=== PATIENT | male | born 2000 | race Caucasian/White ===

== ENCOUNTER 2023-04-30 15:25 | Emergency (ER) | payer BC, SELFPAY ==
[2023-04-30 18:51] LABS: ALT (SGPT) 16 U/L (8-55); AST (SGOT) 17 U/L (5-34); Albumin 4.1 g/dL (3.5-5.0); Alkaline Phosphatase 50 U/L (40-110); Anion Gap 17 mmol/L (10-20); BUN (Urea Nitrogen) 10 mg/dL (8.9-20.6); Bilirubin, Total 0.5 mg/dL (0.2-1.2); Calc. Creatinine Clearance 0 mL/min (70-130); Calcium 9.2 mg/dL (7.8-10.44); Carbon Dioxide 26 mmol/L (22-29); Chloride 102 mmol/L (98-107); Estimated GFR 115; Globulin 3.7 g/dL (2.4-3.5); Glucose 85 mg/dL (70-105); Protein, Total 7.8 g/dL (6.0-8.3); Sodium 141 mmol/L (136-145)
[2023-04-30 18:52] LABS: Hematocrit 46.2 % (38.8-50.0); Mean Corpuscular HGB CONC 34.6 g/dL (32.0-36.0); Mean Corpuscular Hemoglobin 29.7 pg (27.0-33.0); Mean Corpuscular Volume 85.7 fl (81.2-95.1); Mean Platelet Volume 9.9 fl (7.4-10.4); Platelet Count 205 10x3/uL (150-450); RBC Distribution Width 11.6 % (11.5-14.5); Red Blood Cell (RBC) Count 5.39 10x6/uL (4.32-5.72); White Blood Cell (WBC) Count 9.2 10x3/uL (3.5-10.5)
[2023-04-30 19:05] LABS: HIV (1/2) Antibody/Antigen Non-Reactive (NonReactive); HIV 1/2 INDEX 0.14 S/CO (<1.00)
[2023-04-30 19:08] LABS: Mononucleosis NEGATIVE (NEGATIVE)
[2023-04-30 19:09] LABS: MONO NEGATIVE CONTROL ZONE White (Negative) (White); MONO POSITIVE CONTROL Pink Line (Positive) (PINK/RED)
[2023-04-30 19:28] LABS: MDiff Complete? YES
[2023-04-30] MEDS ORDERED: Dexamethasone 10 MG/ML VIAL ONE (19:49)
[2023-04-30] MEDS ORDERED: Ketorolac Tromethamine 30 MG/ML VIAL ONE (19:49)
[2023-04-30 21:13] LABS: Lymphocytes 19 % (21-51); Monocytes 10 % (0-10); Neutrophil 65 % (42-75); Reactive Lymphocytes 6 % (0-10)
[2023-04-30 21:14] LABS: RBC Morph Comment Within Normal Limits
[2023-04-30 21:15] LABS: Platelet Adequacy Comment Appears Adequate
[2023-05-01 00:24] LABS: SARS-CoV-2 NAA Rapid Test Not Detected (NotDetected)
[2023-05-03 00:37] LABS: HSV 1 - DNA Positive (Negative); HSV 2 - DNA Negative (Negative)
== END 2023-04-30 23:24 | disposition home or self-care (01) ==
LOC: CSHERS 15:25
DX: A69.1 Other Vincent's infections (principal); F17.291 Nicotine dependence, other tobacco product, in remission; Z20.822 Contact with and (suspected) exposure to COVID-19
CPT/HCPCS: 36415; 71045; 80053; 85025; 86140; 86308; 87081; 87389; 87430; 87529; 94760; 96372; J1100; J1885